=== PATIENT | male | born 1995 | race African-American/Black ===

== ENCOUNTER 2021-05-21 23:06 | Emergency (ER) | payer SELFPAY ==
[~2021-05-21] VITALS: Ht 182.9 cm; Wt 99.0 kg
[2021-05-21 23:15] VITALS: BP 185/105
[2021-05-21] MEDS ORDERED: DEXAMETHASONE SOD PHOS 20 MG/5 ML VIAL. PO ONE (23:45)
[2021-05-21] MEDS ORDERED: KETOROLAC 60 MG/2 ML VIAL. IM ONE (23:45)
[2021-05-21] MEDS ORDERED: CLINDAMYCIN HCL 150 MG CAPSULE. PO ONE (23:45)
[2021-05-21] MEDS ORDERED: CLIN300C9 PO (23:50)
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
== END 2021-05-22 00:05 | disposition home or self-care (01) ==
LOC: ER 23:06
DX: J02.0 Streptococcal pharyngitis (principal); Z88.0 Allergy status to penicillin
CPT/HCPCS: 87880; 96372; 99283; J1100; J1885

== ENCOUNTER 2022-01-12 10:31 | Emergency (ER) | payer SELFPAY ==
[~2022-01-12] VITALS: Ht 185.4 cm; Wt 104.5 kg
[~2022-01-12 10:31] MED LIST: CLIN-94 PO
[2022-01-12] MEDS ORDERED: METOCLOPRAMIDE HCL 10 MG/2 ML VIAL. IVP ONE (11:30)
[2022-01-12] MEDS ORDERED: diphenhydrAMINE 50 MG/ML VIAL IVP ONE (11:30)
[2022-01-12] MEDS ORDERED: IV NORMAL SALINE 1000ML BAG 1,000 ML IV ONE (11:30)
[2022-01-12 11:41] LABS: BASO # 0.1 x10^3/uL (0.0-0.2); BASO % 1 % (0-3); EOS % 0 % (0-3); HEMATOCRIT 44.7 % (39.0-53.0); HEMOGLOBIN 14.6 g/dL (13.0-17.5); LYMPH # 0.9 x10^3/uL (1.0-4.8); LYMPH % 8 % (24-48); MEAN CORPUSCULAR HEMOGLOBIN 29 pg (25-35); MEAN CORPUSCULAR HGB CONC 33 g/dL (31-37); MEAN CORPUSCULAR VOLUME 88 fL (79-100); MONO # 0.6 x10^3/uL (0.0-1.1); MONO % 5 % (0-9); NEUT # 9.8 x10^3/uL (1.8-7.7); NEUT % 86 % (31-73); PLATELET COUNT 270 x10^3/uL (140-400); RED BLOOD COUNT 5.09 x10^6/uL (4.30-5.70); RED CELL DISTRIBUTION WIDTH 13.5 % (11.5-14.5); WHITE BLOOD COUNT 11.5 x10^3/uL (4.0-11.0)
[2022-01-12 11:53] LABS: CALCIUM 8.6 mg/dL (8.5-10.1); CREATININE 0.9 mg/dL (0.7-1.3); GFR 122.5; POTASSIUM 4.5 mmol/L (3.5-5.1)
--- NOTE | 2022-01-12 11:58 | RAD ---
CT HEAD/BRAIN WO History: Severe headache. Comparison: None. Technique: Noncontrast CT imaging was performed of the head. Findings: There is a focal hyperintensity at the right posterior parietal lobe best appreciated on coronal imag e 30 measuring approximately 0.7 x 0.5 cm. No hydrocephalus or herniation. There are intraventricular blood products. No evidence of acute territorial infarction. Imaged orbits are unremarkable. Imaged paranasal sinuses and mastoid air cells are clear. The scalp a nd calvarium are unremarkable. Impression: 1. Focal hyperdensity right posterior parietal lobe adjacent to the scalp is concerning for possible hemorrhage. Morphology suggests intraparenchymal hemorrhage rather than subarachnoid or subdural. Co nsider MRI or short interval follow-up CT scan to evaluate for evolution. Findings discussed with ESTEE ROWAN APRN at 01/12/2022 11:55 AM. FOR INTERNAL CODING PURPOSES RESULT CODE: (C) ----- Exposure: One or more of the following individualized dose reduction techniques were utilized for thi s examination: 1. Automated exposure control 2. Adjustment of the mA and/or kV according to patient size 3. Use of iterative reconstruction technique. Electronically signed by: Travis Meléndez MD (01/12/2022 11:56 AM) [id number]
[2022-01-12 12:12] VITALS: BP 154/66
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
[2022-01-12] MEDS ORDERED: IOHEXOL 300 MG/ML 100ML VIAL. IV ONE (12:30)
[2022-01-12 13:16] LABS: INFLUENZA A PATIENT NEGATIVE (NEGATIVE); INFLUENZA B PATIENT NEGATIVE (NEGATIVE)
--- NOTE | 2022-01-12 13:25 | RAD ---
PQRS Compliance Statement: One or more of the following individualized dose reduction techniques were utilized for this examinat ion: 1. Automated exposure control 2. Adjustment of the mA and/or kV according to patient size 3. Use of iterative reconstruction technique CTA HEAD Clinical Indication: Reason: Severe headache, abnormal CT head without contrast Comparison: CT head without contrast, earlier same day. Technique: Helical CT imaging from skull base to the skull vertex is performed after 75 cc of Omnipaq ue [address] angiogram protocol. 3-D MIP reconstructions of the [place] are p erformed. PQRS Compliance Statement - Stenosis calculations for CT, MR and conventional angiography are based u raghav measurement of the distal ICA diameter in accordance with the NASCET methodology. Stenosis calcu lations for carotid ultrasound studies are derived from validated velocity criteria which are known t o correlate with the NASCET methodology. Findings: The posterior circulation is intact. Distal internal carotid arteries are patent. Distal vertebral ar teries are codominant. Anterior circulation is intact. No intracranial aneurysm or significant intrac ranial artery stenosis is seen. The small hyperdensity in the posterior right parietal lobe noted on the prior study is not identified on CTA. No obvious abnormality of the dural venous sinuses. No abno rmal enhancement in the brain parenchyma is identified. IMPRESSION: 1. No large vessel occlusion. 2. The small hyperdensity in the posterior right parietal lobe noted on the prior study is not ident ified on CTA. Suggest MR brain. Electronically signed by: Zachary Siu MD (01/12/2022 1:22 PM) [facility]
[2022-01-12] MEDS ORDERED: ACET500T68 PO (13:51)
[2022-01-13] MEDS ORDERED: TRAM50TA PO (11:00)
[2022-01-13] MEDS ORDERED: BUTA-177 PO (15:59)
== END 2022-01-12 13:55 | disposition left against medical advice (07) ==
LOC: ER 10:31
DX: R51.9 Headache, unspecified (principal); I61.9 Nontraumatic intracerebral hemorrhage, unspecified; R93.89 Abnormal findings on diagnostic imaging of other specified body structures
CPT/HCPCS: 36415; 70450; 70496; 80048; 85025; 87428; 96361; 96374; 96375; 99284; J1200; J2765; J7030; Q9967

== ENCOUNTER 2022-01-12 19:27 | Observation (INO) | payer SELFPAY ==
[~2022-01-12] VITALS: Ht 185.4 cm; Wt 105.2 kg
[~2022-01-12 19:27] MED LIST changes: +ACET500T68 PO
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
[2022-01-12] MEDS ORDERED: LABETALOL 20 MG/4 ML DISP.SYRIN. IVP PRN (21:00)
[2022-01-12] MEDS: FAMOTIDINE 20 MG/2 ML VIAL IVP SCH (21:00)
[2022-01-12] MEDS ORDERED: ONDANSETRON PF 4 MG/2 ML VIAL. IVP PRN (21:00)
[2022-01-12] MEDS ORDERED: ACETAMINOPHEN 325 MG TABLET. PO PRN (21:00)
[2022-01-12] MEDS: traMADol 50 MG TABLET PO PRN ×2 (21:53→22:23)
--- NOTE | 2022-01-12 22:55 | NUR ---
Patient received to unit. Continues with headache. Allowed to take quick shower. Settled and bedrest resumed per orders reviewed. Neuro check q4 per orders. Answered questions for patient regarding care. Continue to monitor carefully. Addendum: 01/13/22 at 0351 by COCO CEDILLO RN RN IV Pepcid not administered as not noted to have been left from ED. Pt did not arrive until 2300 and get settled from admission until 2329.
[2022-01-12 23:00] VITALS: BP 151/67
[2022-01-13] MEDS: fentaNYL PF VIAL 100 MCG/2 ML VIAL IVP PRN ×3 (01:38→13:34)
[2022-01-13 02:38] VITALS: BP 153/67
[2022-01-13 07:00] VITALS: BP 150/56
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
[2022-01-13] MEDS: FAMOTIDINE 20 MG/2 ML VIAL IVP SCH (09:00)
[2022-01-13 11:00] VITALS: BP 145/60
[2022-01-13] MEDS ORDERED: TRAM50TA PO (11:00)
[2022-01-13] MEDS ORDERED: GADOTERATE 7.5 MMOL/15ML VIAL. IVP ONE (12:00)
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
--- NOTE | 2022-01-13 13:32 | NUR ---
SS following for discharge planning. SS reviewed pt chart and discussed with pt RN. Pt is from home and is currently on room air. Neurology following. Brain MRI today. Discharge order on the chart for home with self care if Brain MRI is negative. SS will continue to follow for discharge planning.
--- NOTE | 2022-01-13 14:00 | RAD ---
MRI BRAIN WO+W Date: 01/13/2022 11:50 AM Indication: ICH, abnormal CT head Comparison: 01/12/2022. Technique: Multiplanar multisequence MRI of the brain was performed with and without intravenous cont rast using the standard protocol. 20 cc Clariscan contrast was administered intravenously during the exam. Findings: No acute infarct. The ventricles are normal in size and configuration without hydrocephalus. Left par ietal developmental venous anomaly Along the right parietal cortex is a 5 mm lesion demonstrating mixed T2 signal centrally with a T2 hy pointense rim and gradient susceptibility artifact. Trace adjacent T2/FLAIR hyperintensity. The scalp and calvarium are normal. The pituitary and sella are normal. No Chiari malformation. The v isualized upper cervical spine is normal. The visualized orbits and globes are normal. The visualized paranasal sinuses are clear. Trace right mastoid fluid. Normal flow voids within the vertebral, basilar, and internal carotid arteries indicating patency. IMPRESSION: Along the right parietal cortex corresponding to the hyperdense focus on the prior CT is a 5 mm lesio n with imaging characteristics suggestive of a cavernoma. There is trace adjacent T2/FLAIR hyperinten se signal, which could represent edema associated with a recent bleed or gliosis. A follow-up contras t enhanced MRI in 2-3 months is recommended to ensure stability as a more aggressive lesion is not en tirely excluded. Electronically signed by: Braeden Oliver MD (01/13/2022 1:57 PM) [id number]
[2022-01-13 14:57] VITALS: BP 144/63
--- NOTE | 2022-01-13 15:42 | PDOC ---
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 There are no restrictions or limitations on activity. He needs to follow-up with a neurologist in [place] in the next 3 months to repeat the brain MRI. He can take Fioricet as needed for his headache. He should return to the emergency department if headaches worsen or change. Justifications for Admission Other Justification GEMA TOLEDO MD Jan 13, 2022 15:42
[2022-01-13] MEDS ORDERED: BUTA-177 PO (15:59)
[2022-01-13] MEDS ORDERED: BUTALB/APAP/CAFEIN 50/325/40MG TABLET. PO PRN (16:00)
--- NOTE | 2022-01-13 18:57 | NUR ---
Pt. was discharged from Neuro standpoint. MRI result explained to pt. Discharge education given on medication, followup with Neurologist, MRI and activities. Pt. discharged to home with self care, stable at the time of discharge. Pt left the facility at 1840.
== END 2022-01-13 18:50 | disposition home or self-care (01) ==
LOC: ER 19:27 → INTOOBSV 20:50 → 6 SOUTH 20:50
PROVIDERS: ADMIT Internal Medicine; ATTEND Internal Medicine
DX: I61.1 Nontraumatic intracerebral hemorrhage in hemisphere, cortical (principal); Z20.822 Contact with and (suspected) exposure to COVID-19; R51.9 Headache, unspecified; R93.0 Abnormal findings on diagnostic imaging of skull and head, not elsewhere classified; Z53.29 Procedure and treatment not carried out because of patient's decision for other reasons; Z87.828 Personal history of other (healed) physical injury and trauma
CPT/HCPCS: 70553; 96374; 96375; 96376; 99284; A9575; G0378; J3010; J3490; G0379; 99285-25

== ENCOUNTER 2022-02-21 11:06 | Inpatient (IN) | payer SELFPAY ==
[~2022-02-21] VITALS: Ht 182.9 cm; Wt 100.0 kg
[~2022-02-21 11:06] MED LIST changes: +BUTA-177 PO; +BUTA1TAB23 PO; +TRAM50TA PO
[2022-02-21] MEDS ORDERED: IV NORMAL SALINE 1000ML BAG 1,000 ML IV ONE (11:45)
[2022-02-21] MEDS ORDERED: PROCHLORPERAZINE 10 MG/2 ML VIAL. IV ONE (11:45)
[2022-02-21] MEDS ORDERED: fentaNYL PF VIAL 100 MCG/2 ML VIAL IVP ONE (11:45)
[2022-02-21] MEDS ORDERED: diphenhydrAMINE 50 MG/ML VIAL IVP ONE (11:45)
[2022-02-21] MEDS ORDERED: CONTRAST GIVEN. MC PRN (12:15)
[2022-02-21] MEDS ORDERED: IOHEXOL 300 MG/ML 100ML VIAL. IV ONE (12:15)
[2022-02-21 12:16] LABS: BASO # 0.1 x10^3/uL (0.0-0.2); BASO % 1 % (0-3); EOS # 0.4 x10^3/uL (0.0-0.7); EOS % 6 % (0-3); HEMATOCRIT 46.8 % (39.0-53.0); HEMOGLOBIN 15.6 g/dL (13.0-17.5); LYMPH # 1.9 x10^3/uL (1.0-4.8); LYMPH % 31 % (24-48); MEAN CORPUSCULAR HEMOGLOBIN 30 pg (25-35); MEAN CORPUSCULAR HGB CONC 33 g/dL (31-37); MEAN CORPUSCULAR VOLUME 88 fL (79-100); MONO # 0.6 x10^3/uL (0.0-1.1); MONO % 10 % (0-9); NEUT # 3.1 x10^3/uL (1.8-7.7); NEUT % 52 % (31-73); PLATELET COUNT 265 x10^3/uL (140-400); RED CELL DISTRIBUTION WIDTH 13.6 % (11.5-14.5); WHITE BLOOD COUNT 6.1 x10^3/uL (4.0-11.0)
[2022-02-21 12:21] LABS: CALCIUM 9.4 mg/dL (8.5-10.1); CREATININE 0.9 mg/dL (0.7-1.3); GFR 122.5; POTASSIUM 4.1 mmol/L (3.5-5.1)
[2022-02-21 12:26] LABS: ALBUMIN 4.7 g/dL (3.4-5.0); ALBUMIN/GLOBULIN RATIO 1.2 (1.0-1.7); TOTAL BILIRUBIN 0.4 mg/dL (0.2-1.0); TOTAL PROTEIN 8.6 g/dL (6.4-8.2)
--- NOTE | 2022-02-21 13:07 | RAD ---
PQRS Compliance Statement: One or more of the following individualized dose reduction techniques were utilized for this examinat ion: 1. Automated exposure control 2. Adjustment of the mA and/or kV according to patient size 3. Use of iterative reconstruction technique CT HEAD WITHOUT CONTRAST History: Reason: Severe headache Comparison: MR brain with and without contrast January 13, 2022. Procedure: Axial images are obtained of the head from the skull base through the vertex without IV co ntrast. Findings: The ventricles and sulci are normal for the patient's age. The 5 mm hyperdensity along the cortex of the right parietal lobe is unchanged from prior study, image 20. Findings better characterized on rec ent MR brain. No mass-effect, midline shift, hemorrhage, extra-axial fluid collection, or obvious acute infarction is identified. Basilar cisterns are patent. Bone windows demonstrate no acute calvarial abnormality. The visualized paranasal sinuses are clear. Mastoid air cells are well aerated. IMPRESSION: 1. No acute intracranial abnormality. 2. The 5 mm hyperdensity along the cortex of the right parietal lobe is unchanged. MR appearance sug gested a cavernoma. Electronically signed by: Zachary Siu MD (02/21/2022 1:04 PM) [id number]
--- NOTE | 2022-02-21 13:34 | RAD ---
PQRS Compliance Statement: One or more of the following individualized dose reduction techniques were utilized for this examinat ion: 1. Automated exposure control 2. Adjustment of the mA and/or kV according to patient size 3. Use of iterative reconstruction technique CTA HEAD Clinical Indication: Reason: Severe headache Comparison: CTA head with contrast 01/12/2022. MR brain with and without contrast 01/13/2022. CT head wit hout contrast 02/21/2022. Technique: Helical CT imaging from the skull base to the skull vertex is performed after 75 cc of Omn ipaque [address] angiogram protocol. 3-D MIP reconstructions of the [place] re performed. PQRS Compliance Statement - Stenosis calculations for CT, MR and conventional angiography are based u raghav measurement of the distal ICA diameter in accordance with the NASCET methodology. Stenosis calcu lations for carotid ultrasound studies are derived from validated velocity criteria which are known t o correlate with the NASCET methodology. Findings: The lesion of interest along the cortex of the right parietal lobe demonstrates a blush of arterial p hase enhancement and measures 4 x 6 mm, image 96. There are tiny vessels in the region of this lesion but no definitive feeding or draining vessels are identified. There is a left parietal developmental venous anomaly, image 103. The posterior circulation is intact. Distal internal carotid arteries are patent. The anterior circul ation is intact. No intracranial aneurysm or significant stenosis is identified. No obvious abnormali ty of the dural venous sinuses. IMPRESSION: The lesion along the cortex of the right parietal lobe demonstrates a blush of arterial enhancement. No definitive feeding or draining vessels are identified. Please refer to previous MR brain report fo r further details and follow-up recommendations. 1. Electronically signed by: Zachary Siu MD (02/21/2022 1:31 PM) [id number]
[2022-02-21 13:57] VITALS: BP 112/53
--- NOTE | 2022-02-21 15:07 | PHYS DOC ---
Past Medical History Additional Past Medical Histor: BRAIN BLEED Past Surgical History: Other Additional Past Surgical Histo: CRANIOTOMY Smoking Status: Never Smoker Alcohol Use: Occasionally General Adult EDM: Chief Complaint: HEADACHE HPI: HPI: Patient is a 27-year-old male presents to the emergency department complaining of severe frontal headache for the past 3 days, reports a sudden onset reporting a 10 out of 10 headache stating this is the worst headache he has ever had. Patient reports no relief with Toradol and Fioricet taken last night. Patient states he is here in the [facility] on business and lives in [place]. Patient denies dizziness, syncopal or near syncopal episodes, denies diaphoretic episodes, denies visual disturbances, denies chest pain, shortness of breath, nausea, vomiting, diarrhea or constipation. Patient denies numbness or tingling to his extremities. Patient denies other physical complaints physical concerns. Review of Systems: Review of Systems: 14 body systems of review of systems have been reviewed. See HPI for pertinent positives and negative responses, otherwise all other systems are negative, nonpertinent or noncontributory. Constitutional: Negative except as outlined in HPI above. Skin: Negative except as outlined in HPI above. Eyes: Negative except as outlined in HPI above. HENT: Negative except as outlined in HPI above. Respiratory: Negative except as outlined in HPI above. Cardiovascular: Negative except as outlined in HPI above. GI: Negative except as outlined in HPI above. : Negative except as outlined in HPI above. Musculoskeletal: Negative except as outlined in HPI above. Integument: Negative except as outlined in HPI above. Neurologic: Negative except as outlined in HPI above. Endocrine: Negative except as outlined in HPI above. Lymphatic: Negative except as outlined in HPI above. Psychiatric: Negative except as outlined in HPI above. Heart Score: C/O Chest Pain: No Risk Factors: Risk Factors: DM, Current or recent (<one month) smoker, HTN, HLP, family history of CAD, obesity. Risk Scores: Score 0 - 3: 2.5% MACE over next 6 weeks - Discharge Home Score 4 - 6: 20.3% MACE over next 6 weeks - Admit for Clinical Observation Score 7 - 10: 72.7% MACE over next 6 weeks - Early Invasive Strategies Current Medications: Current Medications Medications (Trade) Dose Ordered Sig/Alfredo Start Time Stop Time Status Last Admin Dose Admin Diphenhydramine HCl (Benadryl) 25 mg 1X ONCE 02/21/22 11:45 02/21/22 11:48 DC 02/21/22 11:59 25 MG Fentanyl Citrate (Fentanyl 2ml Vial) 50 mcg 1X ONCE 02/21/22 11:45 02/21/22 11:48 DC 02/21/22 12:02 50 MCG Info (CONTRAST GIVEN -- Rx MONITORING) 1 each PRN DAILY PRN 02/21/22 12:15 02/23/22 12:14 Iohexol (Omnipaque 300 Mg/ml) 75 ml 1X ONCE 02/21/22 12:15 02/21/22 12:16 DC 02/21/22 12:40 75 ML Prochlorperazine Edisylate (Compazine) 10 mg 1X ONCE 02/21/22 11:45 02/21/22 11:48 DC 02/21/22 12:00 10 MG Sodium Chloride 1,000 ml @ 1,000 mls/hr 1X ONCE 02/21/22 11:45 02/21/22 12:44 DC 02/21/22 11:57 1,000 MLS/HR Allergies: Allergies: Allergies Coded Allergies Type Severity Reaction Last Updated Verified Penicillins Allergy Severe anaphylaxis 05/21/21 Yes Physical Exam: PE: Constitutional: Well developed, well nourished, no acute distress, non-toxic appearance. 27-year-old male in no apparent distress. Patient's complaint level of pain exceeds patient's physical appearance and examination. HENT: Normocephalic, atraumatic. Oropharynx moist, pink, no deep tissue infection process appreciated, no lymphadenopathy of the head or neck appreciated, bilateral TMs intact and within normal limits. No drooling, no trismus. Eyes: Conjunctiva normal, no discharge. The patient is photophobic. Neck: Normal range of motion, no stridor. No midline spinal tenderness, no nuchal rigidity. Cardiovascular: No cyanosis appreciated, distal cap refill less than 2 seconds. Lungs & Thorax: Patient is in no respiratory distress, no audible adventitious lung sounds appreciated. Abdomen: Nontender, no abnormalities noted. Skin: Warm, dry, no erythema, no rash. Back: No tenderness, no deformities. Extremities: No tenderness, no cyanosis, no clubbing, ROM intact, no edema. Neurologic: Alert and oriented X 3, normal motor function, normal sensory function, no focal deficits noted. Psychologic: Affect normal, judgement normal, mood normal. Current Patient Data: Labs: Laboratory Tests Test 02/21/22 11:35 White Blood Count 6.1 x10^3/uL (4.0-11.0) Red Blood Count 5.30 x10^6/uL (4.30-5.70) Hemoglobin 15.6 g/dL (13.0-17.5) Hematocrit 46.8 % (39.0-53.0) Mean Corpuscular Volume 88 fL (79-100) Mean Corpuscular Hemoglobin 30 pg (25-35) Mean Corpuscular Hemoglobin Concent 33 g/dL (31-37) Red Cell Distribution Width 13.6 % (11.5-14.5) Platelet Count 265 x10^3/uL (140-400) Neutrophils (%) (Auto) 52 % (31-73) Lymphocytes (%) (Auto) 31 % (24-48) Monocytes (%) (Auto) 10 % (0-9) H Eosinophils (%) (Auto) 6 % (0-3) H Basophils (%) (Auto) 1 % (0-3) Neutrophils # (Auto) 3.1 x10^3/uL (1.8-7.7) Lymphocytes # (Auto) 1.9 x10^3/uL (1.0-4.8) Monocytes # (Auto) 0.6 x10^3/uL (0.0-1.1) Eosinophils # (Auto) 0.4 x10^3/uL (0.0-0.7) Basophils # (Auto) 0.1 x10^3/uL (0.0-0.2) Sodium Level 143 mmol/L (136-145) Potassium Level 4.1 mmol/L (3.5-5.1) Chloride Level 103 mmol/L (98-107) Carbon Dioxide Level 29 mmol/L (21-32) Anion Gap 11 (6-14) Blood Urea Nitrogen 14 mg/dL (8-26) Creatinine 0.9 mg/dL (0.7-1.3) Estimated GFR (Cockcroft-Gault) 122.5 BUN/Creatinine Ratio 16 (6-20) Glucose Level 89 mg/dL (70-99) Calcium Level 9.4 mg/dL (8.5-10.1) Total Bilirubin 0.4 mg/dL (0.2-1.0) Aspartate Amino Transferase (AST) 25 U/L (15-37) Alanine Aminotransferase (ALT) 47 U/L (16-63) Alkaline Phosphatase 94 U/L (46-116) Total Protein 8.6 g/dL (6.4-8.2) H Albumin 4.7 g/dL (3.4-5.0) Albumin/Globulin Ratio 1.2 (1.0-1.7) Laboratory Tests 02/21/22 11:35 Laboratory Tests 02/21/22 11:35 Vital Signs: Vital Signs Date Time Temp Pulse Resp B/P (MAP) Pulse Ox O2 Delivery O2 Flow Rate FiO2 02/21/22 13:57 80 99 02/21/22 12:02 20 Room Air 02/21/22 11:17 98.6 183/94 (123) 98.6 EKG: EKG: [] Radiology/Procedures: Radiology/Procedures: REASON: Severe headache PROCEDURE: CT HEAD WO CONTRAST PQRS Compliance Statement: One or more of the following individualized dose reduction techniques were utilized for this examination: 1. Automated exposure control 2. Adjustment of the mA and/or kV according to patient size 3. Use of iterative reconstruction technique CT HEAD WITHOUT CONTRAST History: Reason: Severe headache Comparison: MR brain with and without contrast January 13, 2022. Procedure: Axial images are obtained of the head from the skull base through the vertex without IV contrast. Findings: The ventricles and sulci are normal for the patient's age. The 5 mm hyperdensity along the cortex of the right parietal lobe is unchanged from prior study, image 20. Findings better characterized on recent MR brain. No mass-effect, midline shift, hemorrhage, extra-axial fluid collection, or obvi ous acute infarction is identified. Basilar cisterns are patent. Bone windows demonstrate no acute calvarial abnormality. The visualized paranasal sinuses are clear. Mastoid air cells are well aerated. IMPRESSION: 1. No acute intracranial abnormality. 2. The 5 mm hyperdensity along the cortex of the right parietal lobe is unchanged. MR appearance suggested a cavernoma. Electronically signed by: Zachary Siu MD (02/21/2022 1:04 PM) [id number] REASON: Severe headache PROCEDURE: CT ANGIOGRAPHY HEAD PQRS Compliance Statement: One or more of the following individualized dose reduction techniques were utilized for this examination: 1. Automated exposure control 2. Adjustment of the mA and/or kV according to patient size 3. Use of iterative reconstruction technique CTA HEAD Clinical Indication: Reason: Severe headache Comparison: CTA head with contrast 01/12/2022. MR brain with and without contrast 01/13/2022. CT head without contrast 02/21/2022. Technique: Helical CT imaging from the skull base to the skull vertex is performed after 75 cc of Omnipaque [address] angiogram protocol. 3-D MIP reconstructions of the [place] are performed. PQRS Compliance Statement - Stenosis calculations for CT, MR and conventional angiography are based upon measurement of the distal ICA diameter in accordance with the NASCET methodology. Stenosis calculations for carotid ultrasound studies are derived from validated velocity criteria which are known to correlate with the NASCET methodology. Findings: The lesion of interest along the cortex of the right parietal lobe demonstrates a blush of arterial phase enhancement and measures 4 x 6 mm, image 96. There are tiny vessels in the region of this lesion but no definitive feeding or draining vessels are identified. There is a left parietal developmental venous anomaly, image 103. The posterior circulation is intact. Distal internal carotid arteries are paten t. The anterior circulation is intact. No intracranial aneurysm or significant stenosis is identified. No obvious abnormality of the dural venous sinuses. IMPRESSION: The lesion along the cortex of the right parietal lobe demonstrates a blush of arterial enhancement. No definitive feeding or draining vessels are identified. Please refer to previous MR brain report for further details and follow-up recommendations. 1. Electronically signed by: Zachary Siu MD (02/21/2022 1:31 PM) [id number] Course & Med Decision Making: Course & Med Decision Making Pertinent Labs and Imaging studies reviewed. (See chart for details) 27-year-old male, vital signs reviewed, resents emerged from concerning headache. Patient's physical examination is unremarkable. 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 The patient was admitted on 01/12/2022, was seen by Dr. López who recommended he have a repeat MRI in 3 months after he returns to [place], also recommended Fioricet as needed for headache and should return to ER if headaches worsen or change. Patient did report this headache being worse than other headaches he has had in the past. Will order CT/CTA head. Will give 1 L normal saline, IV Benadryl, Compazine, IV fentanyl for pain. Patient CT head did not find any new changes however CT angio head did show a lesion along the cortex of the right parietal lobe demonstrating a blush of arterial enhancement, reviewed case with ED attending physician Dr. Reveles who recommended patient be readmitted to hospital. I discussed with patient findings and recommendation of admission to hospital, patient is amenable to ED admission planning. Called and discussed patient case and ED work-up with neurology specialist Dr. Major who recommended patient be evaluated by neurosurgery. Called and discussed patient case and ED work-up with neurosurgery nurse practitioner Nina who recommended patient be seen by Dr. López. Called and discussed patient case and ED work-up with inpatient management physician Dr. Pope, reviewed the recommendations and conversation with Dr. Major and nurse practitioner Nina, Dr. Pope [facility] will see patient in ER, patient is currently awaiting MedSurg unit assignment bed from warehouse guard. Upon reevaluation of the patient, patient states his headache is much better now, rates a 2 or 3 out of 10. Patient remains hemodynamically stable and in no apparent distress at time of admission. Nunu Disclaimer: Nunu Disclaimer: This electronic medical record was generated, in whole or in part, using a voice recognition dictation system. Departure Departure Impression: Primary Impression: Headache Qualified Codes: R51.9 - Headache, unspecified Additional Impression: Abnormal CT of brain Disposition: ADMITTED INPATIENT Admitting Physician: ELIZABETH (Admit to Dr. Pope to MedSur unit) Condition: GUARDED Referrals: NO PCP (PCP) ESTEE ROWAN APRN Feb 21, 2022 15:07
--- NOTE | 2022-02-21 15:58 | NUR ---
Patient arrived to unit and stated "I'm not sure why I was admitted, I just need a referral to neurologist". Notified Dr. Pope. Admission assessments not completed. Addendum: 02/21/22 at 1619 by MYRIAM NAVARRO RN Patient has decided to stay to see a neurologist.
[2022-02-21] MEDS ORDERED: BUTALB/APAP/CAFEIN 50/325/40MG TABLET. PO PRN (16:45)
[2022-02-21] MEDS ORDERED: oxyCODONE/APAP 5/325 1 TAB TABLET PO PRN (16:45)
[2022-02-21] MEDS ORDERED: BUTA1TAB23 PO (16:57)
[2022-02-21] MEDS ORDERED: OXYC1TAB15 PO (17:16)
[2022-02-21] MEDS ORDERED: GABA600T7 PO (17:16)
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
--- NOTE | 2022-02-21 17:25 | PDOC3 ---
Discharge Summary Visit Information Date of Admission: Feb 21, 2022 Date of Discharge: Feb 21, 2022 Final Diagnosis headache cavernous hemangioma Problems Medical Problems: (1) Abnormal CT of brain Status: Acute (2) Headache Status: Acute Brief Hospital Course Allergies Allergies Coded Allergies Type Severity Reaction Last Updated Verified Penicillins Allergy Severe anaphylaxis 05/21/21 Yes Vital Signs Vital Signs Date Time Temp Pulse Resp B/P (MAP) Pulse Ox O2 Delivery O2 Flow Rate FiO2 02/21/22 13:57 80 99 02/21/22 12:02 20 Room Air 02/21/22 11:17 98.6 183/94 (123) 98.6 Lab Results Laboratory Tests Test 02/21/22 11:35 White Blood Count 6.1 x10^3/uL (4.0-11.0) Red Blood Count 5.30 x10^6/uL (4.30-5.70) Hemoglobin 15.6 g/dL (13.0-17.5) Hematocrit 46.8 % (39.0-53.0) Mean Corpuscular Volume 88 fL (79-100) Mean Corpuscular Hemoglobin 30 pg (25-35) Mean Corpuscular Hemoglobin Concent 33 g/dL (31-37) Red Cell Distribution Width 13.6 % (11.5-14.5) Platelet Count 265 x10^3/uL (140-400) Neutrophils (%) (Auto) 52 % (31-73) Lymphocytes (%) (Auto) 31 % (24-48) Monocytes (%) (Auto) 10 % (0-9) Eosinophils (%) (Auto) 6 % (0-3) Basophils (%) (Auto) 1 % (0-3) Neutrophils # (Auto) 3.1 x10^3/uL (1.8-7.7) Lymphocytes # (Auto) 1.9 x10^3/uL (1.0-4.8) Monocytes # (Auto) 0.6 x10^3/uL (0.0-1.1) Eosinophils # (Auto) 0.4 x10^3/uL (0.0-0.7) Basophils # (Auto) 0.1 x10^3/uL (0.0-0.2) Sodium Level 143 mmol/L (136-145) Potassium Level 4.1 mmol/L (3.5-5.1) Chloride Level 103 mmol/L (98-107) Carbon Dioxide Level 29 mmol/L (21-32) Anion Gap 11 (6-14) Blood Urea Nitrogen 14 mg/dL (8-26) Creatinine 0.9 mg/dL (0.7-1.3) Estimated GFR (Cockcroft-Gault) 122.5 BUN/Creatinine Ratio 16 (6-20) Glucose Level 89 mg/dL (70-99) Calcium Level 9.4 mg/dL (8.5-10.1) Total Bilirubin 0.4 mg/dL (0.2-1.0) Aspartate Amino Transf (AST/SGOT) 25 U/L (15-37) Alanine Aminotransferase (ALT/SGPT) 47 U/L (16-63) Alkaline Phosphatase 94 U/L (46-116) Total Protein 8.6 g/dL (6.4-8.2) Albumin 4.7 g/dL (3.4-5.0) Albumin/Globulin Ratio 1.2 (1.0-1.7) Laboratory Tests Test 02/21/22 11:35 White Blood Count 6.1 x10^3/uL (4.0-11.0) Red Blood Count 5.30 x10^6/uL (4.30-5.70) Hemoglobin 15.6 g/dL (13.0-17.5) Hematocrit 46.8 % (39.0-53.0) Mean Corpuscular Volume 88 fL (79-100) Mean Corpuscular Hemoglobin 30 pg (25-35) Mean Corpuscular Hemoglobin Concent 33 g/dL (31-37) Red Cell Distribution Width 13.6 % (11.5-14.5) Platelet Count 265 x10^3/uL (140-400) Neutrophils (%) (Auto) 52 % (31-73) Lymphocytes (%) (Auto) 31 % (24-48) Monocytes (%) (Auto) 10 % (0-9) Eosinophils (%) (Auto) 6 % (0-3) Basophils (%) (Auto) 1 % (0-3) Neutrophils # (Auto) 3.1 x10^3/uL (1.8-7.7) Lymphocytes # (Auto) 1.9 x10^3/uL (1.0-4.8) Monocytes # (Auto) 0.6 x10^3/uL (0.0-1.1) Eosinophils # (Auto) 0.4 x10^3/uL (0.0-0.7) Basophils # (Auto) 0.1 x10^3/uL (0.0-0.2) Sodium Level 143 mmol/L (136-145) Potassium Level 4.1 mmol/L (3.5-5.1) Chloride Level 103 mmol/L (98-107) Carbon Dioxide Level 29 mmol/L (21-32) Anion Gap 11 (6-14) Blood Urea Nitrogen 14 mg/dL (8-26) Creatinine 0.9 mg/dL (0.7-1.3) Estimated GFR (Cockcroft-Gault) 122.5 BUN/Creatinine Ratio 16 (6-20) Glucose Level 89 mg/dL (70-99) Calcium Level 9.4 mg/dL (8.5-10.1) Total Bilirubin 0.4 mg/dL (0.2-1.0) Aspartate Amino Transf (AST/SGOT) 25 U/L (15-37) Alanine Aminotransferase (ALT/SGPT) 47 U/L (16-63) Alkaline Phosphatase 94 U/L (46-116) Total Protein 8.6 g/dL (6.4-8.2) Albumin 4.7 g/dL (3.4-5.0) Albumin/Globulin Ratio 1.2 (1.0-1.7) Brief Hospital Course Mr. Gardner is a 27 old male that just needed a doctor to talk to him for a few minutes about the follow up plan for his headaches, severe headache today, better to 0/10 pain when I saw him, was 10 when going to ER MRI from previous, CT head today said "refer to MRI for details of lesion" 01/13/22, MRI - Along the right parietal cortex corresponding to the hyperdense focus on the prior CT is a 5 mm lesion with imaging characteristics suggestive of a cavernoma. There is trace adjacent T2/FLAIR hyperintense signal, which could represent edema associated with a recent bleed or gliosis. A follow-up contrast enhanced MRI in 2-3 months is recommended to ensure stability as a more aggressive lesion is not entirely excluded. needs outpatient primary care or neuro follow up for headaches, better at DC Discharge Information Condition at Discharge: Improved Follow Up: Weeks Disposition/Orders: D/C to Home Scheduled Gabapentin (Gabapentin) 600 Mg Tablet, 600 MG PO TID for NEUROGENIC PAIN, #90 Prescribed by: LARS ORTIZ on 02/21/22 1716 Scheduled PRN Oxycodone/Apap 5-325 (Percocet 5-325 Mg Tablet ) 1 Each Tablet, 1 TAB PO PRN Q4HRS PRN for PAIN, #35 Prescribed by: LARS ORTIZ on 02/21/22 1716 Discontinued Medications Acetaminophen (Acetaminophen) 500 Mg Tablet, 1 TAB PO PRN Q6HRS PRN for pain or fever for 15 Days, #60 Ref 0 Prescribed by: ESTEE ROWAN APRN on 01/12/22 1351 Butalb/Acetaminophen/Caffeine (Nerutr-Xstluwra-Rsez 50-325-40) 1 Each Tablet, 1 EACH PO DAILY PRN for HEADACHE for 30 Days, #30 Discontinued Reason: Prescription changed Prescribed by: MICHELLE BURNS MD on 02/07/22 1308 Clindamycin Hcl (Clindamycin Hcl) 300 Mg Capsule, 1 CAP PO TID for antibiotic for 10 Days, #30 Prescribed by: BARON SILVEIRA MD on 05/21/21 2350 Tramadol Hcl (Tramadol Hcl) 50 Mg Tablet, 50 MG PO PRN Q6HRS PRN for MODERATE PAIN 4-6 for 7 Days, #14 Prescribed by: JUILANA VÁSQUEZ on 01/13/22 1101 Patient Instructions Patient Instructions better PRN pain meds, find f/u Justicifation of Admission Dx: Justifications for Admission: Justification of Admission Dx: LARS Faustin MD Feb 21, 2022 17:25
--- NOTE | 2022-02-21 18:00 | NUR ---
Discharge Note: ARVIN MIR IVEL Discharge instructions and discharge home medications reviewed with Patient and a copy given. All questions have been answered and understanding verbalized. The following instructions and handouts were given: information about follow up, medications, and activity. Discontinued lines and drains: IV line in left AC removed, catheter tip intact. Patient discharged to home with self care with family member, patient ambulated to discharge vehicle.
== END 2022-02-21 18:00 | disposition home or self-care (01) | DRG 93 ==
LOC: EDBD → ER 11:06 → 4 NORTH 14:40
PROVIDERS: ADMIT Internal Medicine; ATTEND Internal Medicine
DX: D18.02 Hemangioma of intracranial structures (principal); Z88.0 Allergy status to penicillin
CPT/HCPCS: 36415; 70450; 70496; 80053; 85025; 96361; 96374; 96375; J0780; J1200; J3010; J7030; Q9967; 99285-25; G0378